=== PATIENT | male | born 1950 | race Caucasian/White ===

== ENCOUNTER 2016-09-29 19:18 | Inpatient (IN) | payer BC ==
[~2016-09-29] VITALS: Ht 177.8 cm; Wt 110.5 kg
[~2016-09-29 19:18] MED LIST: ACAM1TAB5 PO; ALLO300T2 PO; ASPI325T PO; BENA25TA3 PO; CARV3.125 PO; CHLO25CA2 PO; FLUO1TAB3 PO; SYMB80AE INH
[2016-09-29 19:20] VITALS: BP 131/62; PULSE 97; RESP 14; TEMP 97.5; O2SAT 92
[2016-09-29] MEDS ORDERED: SODIUM CHLOR 0.9% 1000 ML INJ 1,000 ML IV ONE (19:36)
[2016-09-29] MEDS ORDERED: ONDANSETRON HCL 4 MG/2 ML VIAL IVP ONE (19:45)
--- NOTE | 2016-09-29 19:58 | PD ---
HPI Chief Complaint: Fall Time Seen by Provider: 19:51 Travel History International Travel<30 days: No Contact w/Intl Traveler<30days: No Traveled to known affect area: No History of Present Illness HPI 65-year-old male that presents to the ED for evaluation of fall. Patient apparently had a syncopal fall at home. Per ambulance report bystanders stated the patient has had some episodes of blacking out. Patient does have a chronic history of alcohol abuse and he states that he has been trying to lower his intake. Patient doesn't remember the fall. Patient does not remember what actually happened. Patient does have some cuts to the nose as well as one to the tongue. Patient has pain in his head and neck. Patient does have bruises and contusions noted to the knees bilaterally. Patient does have some bruises as well noted on the arms as well. Patient has any chest pain or shortness of breath. He denies any blood thinners. Per patient he has an appointment with the [facility] to get evaluated for this "blackouts". Patient was just seen here couple weeks ago for something similar and was admitted to the hospital for almost a week. He has no allergies to medication. He states that his pain is 7 out of 10. Unclear of his last tetanus shot. Per patient she did have another fall 3 days ago but he did not get seen and he doesn't remember what happened during that time as well. PFSH Past Medical History Asthma: No Blood Disorders: No Anxiety: No Depression: Yes Heart Rhythm Problems: No Cancer: No Cardiac Catheterization: Yes Cardiovascular Problems: Yes (HTN) High Cholesterol: No Chest Pain: No Congestive Heart Failure: No COPD: Yes Endocrine: No Gout: Yes Genitourinary: No Immune Disorder: No Neurologic: No Psychiatric: Yes Respiratory: Yes (COPD) Sleep Apnea: No Tetanus Vaccination: Unknown Influenza Vaccination: Yes Past Surgical History Tonsillectomy: Yes Other Surgery: Yes Social History Alcohol Use: Yes (DAILY) Tobacco Use: No (former smoker, quit 6 years ago) Substance Use: No Allergies-Medications (Allergen,Severity, Reaction): Coded Allergies: No Known Allergies (Unverified , 09/29/16) Reported Meds & Prescriptions Reported Meds & Active Scripts Active Chlordiazepoxide (Chlordiazepoxide HCl) 25 Mg Cap 50 Mg PO Q6H 5 Days Aspirin 325 Mg Tab 325 Mg PO DAILY Coreg (Carvedilol) 3.125 Mg Tab 3.125 Mg PO BID Reported Acamprosate DR 333 Mg Tab 333 Mg PO TID Benadryl Allergy (Diphenhydramine HCl) 25 Mg Tab 25 Mg PO DAILY PRN Symbicort Inh (Budesonide/Formoterol Fumarate) 80-4.5 Mcg/Act Aero 2 Puff INH Q12HR Allopurinol 300 Mg Tab 300 Mg PO DAILY Fluoxetine (Fluoxetine HCl) 20 Mg Tab 20 Mg PO DAILY Review of Systems Except as stated in HPI: all other systems reviewed are Neg Physical Exam Narrative GENERAL: SKIN: Warm and dry. Patient has abrasions to the bridge of the nose as well as abrasions to the lip and right cheek and left cheek. Patient does have a hematoma to the right eyebrow. HEAD: Atraumatic. Normocephalic. EYES: Pupils equal and round 4mm reactive to light and accomodation. No scleral icterus. No injection or drainage. EOM intact. ENT: No nasal bleeding or discharge. Mucous membranes pink and moist. Tongue is midline but she does have a mid laceration to the distal tongue, about 1 cm. No uvula deviation. NECK: Trachea midline. No JVD. CARDIOVASCULAR: Regular rate and rhythm. No murmurs, S3, S4. RESPIRATORY: No accessory muscle use. Clear to auscultation. Breath sounds equal bilaterally. GASTROINTESTINAL: Abdomen soft, non-tender, nondistended. Hepatic and splenic margins not palpable. MUSCULOSKELETAL: Extremities without clubbing, cyanosis, or edema. No obvious deformities. Full range of motion of the upper and lower extremities bilaterally. Patient does have bruises and abrasions to both knees bilaterally. Patient does have bruising and abrasions also noted to the hands and forearms. No obvious lumbar, thoracic spine tenderness to palpation. Patient does have cervical spine tenderness to palpation. He has cervical collar in place. NEUROLOGICAL: Awake and alert. No obvious cranial nerve deficits. Motor grossly within normal limits. Five out of 5 muscle strength in the arms and legs. Normal speech. PSYCHIATRIC: Appropriate mood and affect; insight and judgment normal. Data Data Last Documented VS Vital Signs Date Time Temp Pulse Resp B/P Pulse Ox O2 Delivery O2 Flow Rate FiO2 09/29/16 19:20 97 14 95 Nasal Cannula 2 09/29/16 19:20 97.5 131/62 Orders Electrocardiogram (09/29/16 19:36) Basic Metabolic Panel (Bmp) (09/29/16 19:36) Complete Blood Count With Diff (09/29/16 19:36) Magnesium (Mg) (09/29/16 19:36) Ckmb (Isoenzyme) Profile (09/29/16 19:36) Troponin I (09/29/16 19:36) Act Partial Throm Time (Ptt) (09/29/16 19:36) Prothrombin Time / Inr (Pt) (09/29/16 19:36) Urinalysis - C+S If Indicated (09/29/16 19:36) Chest, Single Ap (09/29/16 19:36) Ct Brain W/O Iv Contrast(Rout) (09/29/16 19:36) Ct Cerv Spine W/O Contrast (09/29/16 19:36) Ecg Monitoring (09/29/16 19:36) Iv Access Insert/Monitor (09/29/16 19:36) Oximetry (09/29/16 19:36) Ondansetron Inj (Zofran Inj) (09/29/16 19:45) Sodium Chlor 0.9% 1000 Ml Inj (Ns 1000 M (09/29/16 19:36) Ct Facial Bones W/O Iv Cont (09/29/16 ) Knee, Complete (4vws) (09/29/16 ) Knee, Ltd (1 Or 2vws) (09/29/16 ) Pelvis, Ap Only (Routine) (09/29/16 ) Alcohol (Ethanol) (09/29/16 19:36) Drug Screen, Random Urine (09/29/16 19:36) Hepatic Functional Panel (09/29/16 19:40) Wound Care (09/29/16 19:59) Tetanus/Diphtheria Tox Adult (Tetanus/Di (09/29/16 20:00) Lidocaine 1% Inj (50 Ml) (Xylocaine 1% I (09/29/16 20:00) CKMB (09/29/16 19:45) CKMB% (09/29/16 19:45) Thiamine Inj (Thiamine Inj) (09/29/16 21:15) Admit Order (Ed Use Only) (09/29/16 22:04) Admit To Inpatient (09/29/16 ) Vital Signs (Adult) Q4H (09/29/16 22:05) Activity Bed Rest (09/29/16 22:05) ^ Pest Control Pilot / Telemetry .CONTINUOUS (09/29/16 22:05) Diet Heart Healthy (09/30/16 Breakfast) Sodium Chlor 0.9% 1000 Ml Inj (Ns 1000 M (09/29/16 22:05) Sodium Chloride 0.9% Flush (Ns Flush) (09/29/16 22:15) Sodium Chloride 0.9% Flush (Ns Flush) (09/30/16 09:00) Acetaminophen (Tylenol) (09/29/16 22:15) Ondansetron Inj (Zofran Inj) (09/29/16 22:15) Comprehensive Metabolic Panel (09/30/16 06:00) Complete Blood Count With Diff (09/30/16 06:00) Scd Bilateral/Knee High NATALI.BID (09/29/16 22:05) Naloxone Inj (Narcan Inj) (09/29/16 22:15) Alcohol Withdrawal Asmt-Ciwa Q4HX18 (09/29/16 22:05) Flumazenil Inj (Romazicon Inj) (09/29/16 22:15) Lorazepam (Ativan) (09/29/16 22:15) Lorazepam Inj (Ativan Inj) (09/29/16 22:15) Lorazepam (Ativan) (09/29/16 22:15) Lorazepam Inj (Ativan Inj) (09/29/16 22:15) Lorazepam Inj (Ativan Inj) (09/29/16 22:15) Lorazepam Inj (Ativan Inj) (09/29/16 22:15) Inpatient Certification (09/29/16 ) Consult Oral, Facial Surgery (09/29/16 ) Allopurinol (Zyloprim) (09/30/16 09:00) Aspirin (Aspirin) (09/30/16 09:00) Budeson-Formot 80-4.5 Mcg Inh (Symbicort (09/30/16 09:00) Carvedilol (Coreg) (09/30/16 09:00) Fluoxetine (Prozac) (09/30/16 09:00) (Nf) Acamprosate Dr (09/30/16 09:00) (Nf) Diphenhydramine (Benadryl Allergy) (09/29/16 22:15) Labs Laboratory Tests Test 09/29/16 19:45 White Blood Count 11.7 TH/MM3 Red Blood Count 4.08 MIL/MM3 Hemoglobin 13.7 GM/DL Hematocrit 39.6 % Mean Corpuscular Volume 97.0 FL Mean Corpuscular Hemoglobin 33.5 PG Mean Corpuscular Hemoglobin 34.6 % Concent Red Cell Distribution Width 13.8 % Platelet Count 342 TH/MM3 Mean Platelet Volume 8.0 FL Neutrophils (%) (Auto) 56.5 % Lymphocytes (%) (Auto) 33.7 % Monocytes (%) (Auto) 6.9 % Eosinophils (%) (Auto) 1.6 % Basophils (%) (Auto) 1.3 % Neutrophils # (Auto) 6.6 TH/MM3 Lymphocytes # (Auto) 4.0 TH/MM3 Monocytes # (Auto) 0.8 TH/MM3 Eosinophils # (Auto) 0.2 TH/MM3 Basophils # (Auto) 0.1 TH/MM3 CBC Comment DIFF FINAL Differential Comment Prothrombin Time 10.7 SEC Prothromb Time International 1.0 RATIO Ratio Activated Partial 26.2 SEC Thromboplast Time Sodium Level 140 MEQ/L Potassium Level 4.0 MEQ/L Chloride Level 101 MEQ/L Carbon Dioxide Level 28.9 MEQ/L Anion Gap 10 MEQ/L Blood Urea Nitrogen 12 MG/DL Creatinine 1.13 MG/DL Estimat Glomerular Filtration 65 ML/MIN Rate Random Glucose 111 MG/DL Calcium Level 8.1 MG/DL Magnesium Level 1.8 MG/DL Total Bilirubin 0.4 MG/DL Direct Bilirubin 0.1 MG/DL Indirect Bilirubin 0.3 MG/DL Aspartate Amino Transf 66 U/L (AST/SGOT) Alanine Aminotransferase 58 U/L (ALT/SGPT) Alkaline Phosphatase 114 U/L Total Creatine Kinase 136 U/L Creatine Kinase MB 3.7 NG/ML Troponin I 0.03 NG/ML Total Protein 6.9 GM/DL Albumin 3.0 GM/DL Ethyl Alcohol Level 217 MG/DL MDM Medical Decision Making Medical Screen Exam Complete: Yes Emergency Medical Condition: Yes Medical Record Reviewed: Yes Interpretation(s) CBC & BMP Diagram 09/29/16 19:[address] 09/29/161935 Signed Impressions: Service Date/Time: Thursday, September 29, 2016 19:49 - CONCLUSION: 1. No intracranial abnormality is seen. 2. Right periorbital soft tissue swelling. 3. Facial CT examination to follow. Renny Alston MD Chest X-Ray 09/29/161935 Signed Impressions: Service Date/Time: Thursday, September 29, 2016 20:19 - CONCLUSION: Normal examination. Renny Alston MD Pelvis X-Ray 09/29/16 0000 Signed Impressions: Service Date/Time: Thursday, September 29, 2016 20:17 - CONCLUSION: No acute disease. Renny Alston MD CT face did showed right lower orbital fracture. alcohol is 200s. Differential Diagnosis Laceration versus head injury versus syncope versus presyncope versus alcohol abuse versus fall versus ICH versus traumatic head injury versus Narrative Course 65-year-old male that presents to the ED for evaluation of fall. Patient was properly examined and was found to have signs and symptoms consistent with appears to be syncopal fall. Patient does smell of alcohol but he he has had episodes of blacking out. Patient had an episode 3 days ago with the same. Labs and imaging were ordered. Labs and imaging showed elevated alcohol level in the 200s as well as fracture of the right lower orbit. Patient does have entrapment of the right eye on my second evaluation of the patient. Case was discussed with maxillofacial surgery and Dr. Finley who agrees to admission for surgery. After explained procedure to the patient and he agreed to it laceration of the tongue was repaired by me with assistance of ED nurse. Patient alert procedure well. Patient was told the sutures will dissolve on their own. Patient was started on unasyn antibiotic. Patient was told findings and agrees to admission. Patient was given IV fluids and thiamine here. Case was discussed with Dr. Chatman who agrees to admission. Procedures Procedure Narrative LACERATION LOCATION: tongue LENGTH: 1.5 cm throught and through in the mid tongue with slight avulsion of tip NUMBER OF STITCHES/GABY: 7 sutures REPAIR: The area of the laceration was prepped with Betadine and sterilely draped. The laceration was infiltrated with 1% Lidocaine. The wound was copiously irrigated and explored without evidence of foreign body, tendon injury or neurovascular injury. The wound was closed using 4-0 Vycril. This was a 1 layer repair. A sterile dressing was applied. The patient was advised to keep the dressing clean and dry. Patient tolerated the procedure well. EKG Prior to Arrival: No Diagnosis Primary Impression: Right orbital fracture Qualified Code: S02.81XA - Right orbital fracture, closed, initial encounter Additional Impressions: Alcohol abuse Syncopal episodes Qualified Code: R55 - Syncope, unspecified syncope type Admitting Information Admitting Physician Requests: Admit Jay Pollard Sep 29, 2016 19:58
[2016-09-29] MEDS ORDERED: TETANUS/DIPHTHERIA TOXOID ADULT 0.5 ML VIAL IM ONE (20:00)
[2016-09-29] MEDS ORDERED: LIDOCAINE HCL 1% 50 ML VIAL INFIL ONE (20:00)
[2016-09-29 20:07] LABS: AUTOMATED NEUTROPHIL # 6.6 TH/MM3 (1.8-7.7); BASOPHIL # 0.1 TH/MM3 (0-0.2); BASOPHIL % 1.3 % (0.0-2.0); EOSINOPHIL # 0.2 TH/MM3 (0-0.4); EOSINOPHIL % 1.6 % (0.0-4.0); HEMATOCRIT 39.6 % (39.0-51.0); HEMO FLAGS DIFF FINAL; LYMPH % 33.7 % (9.0-44.0); MEAN CORPUSCULAR HEMOGLOBIN 33.5 PG (27.0-34.0); MEAN CORPUSCULAR HGB CONC 34.6 % (32.0-36.0); MONO % 6.9 % (0.0-8.0); NEUT % 56.5 % (16.0-70.0); PLATELET COUNT 342 TH/MM3 (150-450); RED BLOOD COUNT 4.08 MIL/MM3 (4.50-5.90); RED CELL DISTRIBUTION WIDTH 13.8 % (11.6-17.2); WHITE BLOOD COUNT 11.7 TH/MM3 (4.0-11.0)
[2016-09-29 20:17] LABS: APTT (PATIENT) 26.2 SEC (24.3-30.1); PROTHROMBIN TIME - PATIENT 10.7 SEC (9.8-11.6)
--- NOTE | 2016-09-29 20:19 | RADRPT ---
EXAM DATE/TIME: 09/29/2016 19:49 [facility] COMPARISON: CT BRAIN W/O CONTRAST, September 12, 2016, 21:32. INDICATIONS : Trauma, fall. RADIATION DOSE: 42.33 CTDIvol (mGy) MEDICAL HISTORY : Hypertension. Cardiovascular disease SURGICAL HISTORY : None. ENCOUNTER: Initial ACUITY: 1 day PAIN SCALE: 5/10 LOCATION: cranial TECHNIQUE: Multiple contiguous axial images were obtained of the head. Using automated exposure control and adj ustment of the mA and/or kV according to patient size, radiation dose was kept as low as reasonably a chievable to obtain optimal diagnostic quality images. FINDINGS: CEREBRUM: The ventricles are normal for age. No evidence of midline shift, mass lesion, hemorrhage or acute in farction. No extra-axial fluid collections are seen. POSTERIOR FOSSA: The cerebellum and brainstem are intact. The 4th ventricle is midline. The cerebellopontine angle i s unremarkable. EXTRACRANIAL: There is right periorbital swelling. The patient is to have a CT of the facial bones to follow. SKULL: The calvaria is intact. No evidence of skull fracture. CONCLUSION: 1. No intracranial abnormality is seen. 2. Right periorbital soft tissue swelling. 3. Facial CT examination to follow. Renny Alston MD on September 29, 2016 at 20:16 Board Certified Radiologist. This report was verified electronically.
[2016-09-29 20:25] LABS: ANION GAP 10 MEQ/L (5-15); BICARBONATE 28.9 MEQ/L (21.0-32.0); BLOOD UREA NITROGEN 12 MG/DL (7-18); CHLORIDE 101 MEQ/L (98-107); GLOMERULAR FILTRATION RATE 65 ML/MIN (>89); INDIRECT BILIRUBIN 0.3 MG/DL (0.0-0.8); MAGNESIUM 1.8 MG/DL (1.5-2.5); SODIUM (NA) 140 MEQ/L (136-145); TOTAL BILIRUBIN ADULT 0.4 MG/DL (0.2-1.0)
[2016-09-29 20:28] LABS: CREATINE KINASE 136 U/L (39-308)
[2016-09-29 20:41] LABS: CKMB 3.7 NG/ML (0.5-3.6)
--- NOTE | 2016-09-29 20:45 | RADRPT ---
EXAM DATE/TIME: 09/29/2016 20:17 [facility] COMPARISON: No previous studies available for comparison. INDICATIONS : Pain from fall. MEDICAL HISTORY : None. SURGICAL HISTORY : None. ENCOUNTER: Initial ACUITY: 1 day PAIN SCORE: 5/10 LOCATION: Bilateral pelvis FINDINGS: A single frontal view of the pelvis demonstrates no evidence of fracture. The bony pelvic ring is in tact. Bony mineralization is normal. The soft tissues are intact. CONCLUSION: No acute disease. Renny Alston MD on September 29, 2016 at 20:43 Board Certified Radiologist. This report was verified electronically.
--- NOTE | 2016-09-29 20:48 | RADRPT ---
EXAM DATE/TIME: 09/29/2016 20:19 [facility] COMPARISON: No previous studies available for comparison. INDICATIONS : Abnormal heartbeat. MEDICAL HISTORY : None. SURGICAL HISTORY : Cardiac catheterization. ENCOUNTER: Initial ACUITY: 1 day PAIN SCORE: 5/10 LOCATION: Bilateral chest FINDINGS: A single view of the chest demonstrates the lungs to be symmetrically aerated without evidence of mas s, infiltrate or effusion. The cardiomediastinal contours are unremarkable. Osseous structures are intact. CONCLUSION: Normal examination. Renny Alston MD on September 29, 2016 at 20:47 Board Certified Radiologist. This report was verified electronically.
--- NOTE | 2016-09-29 20:51 | RADRPT ---
EXAM DATE/TIME: 09/29/2016 19:49 [facility] COMPARISON: No previous studies available for comparison. INDICATIONS : Trauma, fall. RADIATION DOSE: 25.01 CTDIvol (mGy) MEDICAL HISTORY : Hypertension. Cardiovascular disease SURGICAL HISTORY : None. ENCOUNTER: Initial ACUITY: 1 day PAIN SCALE: 5/10 LOCATION: neck TECHNIQUE: Volumetric scanning of the cervical spine was performed. Multiplanar reconstructions i n the sagittal, coronal and oblique axial planes were performed. Using automated exposure control a nd adjustment of the mA and/or kV according to patient size, radiation dose was kept as low as reason ably achievable to obtain optimal diagnostic quality images. FINDINGS: VERTEBRAE: Normal vertebral body height. ALIGNMENT: There is mild anterior subluxation of C3 on C4 in the order of 3 mm likely secondary t o facet hypertrophy. C2-C3: The posterior disc margin appears grossly intact. Significant spinal stenosis is not appreci ated. There is facet hypertrophy on the left side. This causes a mild impression on the posterior a spect of the left neural foramina. The right neural foramina appears patent. C3-C4: There is minimal anterior subluxation of C3 on C4 in the order of 3 mm. The posterior disc m argin appears grossly intact. There is bilateral facet hypertrophy being worse on the left. The left -sided facet hypertrophy does cause narrowing of the left neural foramina. The right neural foramina appears intact. C4-C5: Posterior disc margin appears grossly intact. Significant spinal stenosis is not appreciated . There is bilateral facet hypertrophy being worse on the left. There is some mild narrowing of the left neural foramina. The right neural foramina appears intact. C5-C6: Posterior disc margin appears grossly intact. There is bilateral facet hypertrophy being wor se on the right. Significant narrowing of the neural foramina is not appreciated. C6-C7: There is minimal posterior subluxation of C6 on C7 in the order of 2 mm. There is narrowing of the C6-C7 disc level. There are peripheral marginal osteophytes causing a mild impression on the t hecal sac. There is uncovertebral hypertrophy. There is mild facet hypertrophy. There is some narro wing of the left neural foramina. The right neural foramina appears grossly intact. C7-T1: Intact. CONCLUSION: Degenerative change as described above. An acute bony abnormality is not seen. Renny Alston MD on September 29, 2016 at 20:18 Board Certified Radiologist. This report was verified electronically.
--- NOTE | 2016-09-29 20:56 | RADRPT ---
EXAM DATE/TIME: 09/29/2016 19:49 [facility] COMPARISON: No previous studies available for comparison. INDICATIONS : Trauma, fall. RADIATION DOSE: 64.21 CTDIvol (mGy) MEDICAL HISTORY : Hypertension. Cardiovascular disease SURGICAL HISTORY : None. ENCOUNTER: Initial ACUITY: 1 day PAIN SCORE: 6/10 LOCATION: Right facial and nasal TECHNIQUE: Volumetric scanning of the facial bones was performed. Using automated exposure contr ol and adjustment of the mA and/or kV according to patient size, radiation dose was kept as low as re asonably achievable to obtain optimal diagnostic quality images. FINDINGS: There are multiple fractures in the nasal bones. The fractures at the bases of the nasa l bones are slightly shifted towards the left in the order of 1 mm. There appears to be fracturing of the superior anterior aspect of the lamina papyracea best appreciat ed on the coronal images. Some orbital fat appears medially displaced. Orbital emphysema is not see n. The orbital margins appear intact. The maxillae appear intact. The zygomatic arches are intact. There does appear to be mucosal disease at the left frontal sinus, the bilateral ethmoid sinuses, b ilateral maxillary sinuses and extending into the left nasal cavity. There is mild mucosal thickenin g at the anterior medial left sphenoid sinus. There is right periorbital soft tissue swelling. CONCLUSION: 1. Multiple nasal bone fractures with minimal left lateral displacement. 2. Fracturing of the anterior superior right lamina papyracea with some displacement of the medial or bital fat into the defect. 3. Suspected underlying sinus disease as described above. 4. Right periorbital soft-tissue swelling. Renny Alston MD on September 29, 2016 at 20:22 Board Certified Radiologist. This report was verified electronically.
--- NOTE | 2016-09-29 21:08 | RADRPT ---
EXAM DATE/TIME: 09/29/2016 20:24 [facility] COMPARISON: No previous studies available for comparison. INDICATIONS : Pain from fall. MEDICAL HISTORY : None. SURGICAL HISTORY : None. ENCOUNTER: Initial ACUITY: 1 day PAIN SCORE: 5/10 LOCATION: Right knee. FINDINGS: There is joint space narrowing seen medially and laterally. There is mild spur formati on at the medial femoral condyle and medial tibial plateau. There is a mild joint effusion. There i s some spurring off the anterior superior aspect of the patella. An acute fracture is not seen. CONCLUSION: 1. Degenerative change as described above. 2. Mild joint effusion. Renny Alston MD on September 29, 2016 at 20:48 Board Certified Radiologist. This report was verified electronically.
[2016-09-29] MEDS ORDERED: THIAMINE INJ 100 MG in SODIUM CHLORIDE 0.9% INJ 100 ML IV ONE (21:15)
--- NOTE | 2016-09-29 21:30 | RADRPT ---
EXAM DATE/TIME: 09/29/2016 20:21 [facility] COMPARISON: No previous studies available for comparison. INDICATIONS : Pain from fall. MEDICAL HISTORY : None. SURGICAL HISTORY : None. ENCOUNTER: Initial ACUITY: 1 day PAIN SCORE: 5/10 LOCATION: Left knee. FINDINGS: The knee joint is normally aligned. No fracture is seen. No effusion is seen. There is some mild spu rring off the anterior superior aspect of the patella. CONCLUSION: No acute abnormality is seen. Renny Alston MD on September 29, 2016 at 20:47 Board Certified Radiologist. This report was verified electronically.
[2016-09-29] MEDS ORDERED: LORazepam 1 MG TAB PO PRN (22:15)
[2016-09-29] MEDS ORDERED: SODIUM CHLORIDE 0.9% FLUSH 5 ML FLUSH FLUSH PRN (22:15)
[2016-09-29] MEDS ORDERED: LORazepam 2 MG TAB PO PRN (22:15)
[2016-09-29] MEDS ORDERED: ACETAMINOPHEN 325 MG TAB PO PRN (22:15)
[2016-09-29] MEDS ORDERED: LORazepam 2 MG/ML VIAL IV PUSH PRN ×4 (22:15)
[2016-09-29] MEDS ORDERED: diphenhydrAMINE HCL 25 MG CAP PO PRN (22:15)
[2016-09-29] MEDS ORDERED: FLUMAZENIL 0.5 MG/5 ML VIAL IV PUSH PRN (22:15)
[2016-09-29] MEDS ORDERED: ONDANSETRON HCL 4 MG/2 ML VIAL IVP PRN (22:15)
[2016-09-29] MEDS ORDERED: NALOXONE HCL 0.4 MG/ML AMP IV PRN (22:15)
[2016-09-29 22:41] LABS: AMPHETAMINE, URINE NEG (NEG); BARBITURATES, URINE NEG (NEG); COCAINE, URINE NEG (NEG)
[2016-09-29 22:42] LABS: BLOOD, URINE NEG (NEG); COMMENT (UR) CULT NOT INDICATED; CULTURE IF INDICATED CULT NOT INDICATED; GLUCOSE,URINE NEG (NEG); HYALINE CAST, URINE 3 /lpf (RARE); KETONE, URINE NEG (NEG); NITRITE,URINE NEG (NEG); PH, URINE 5.5 (5.0-8.5); URINE COLOR LIGHT-YELLOW (YELLW/STRAW)
[2016-09-29] MEDS: SODIUM CHLOR 0.9% 1000 ML INJ 1,000 ML IV SCH (23:30)
[2016-09-29 23:37] VITALS: BP 135/60; PULSE 100; RESP 18; O2SAT 98
[2016-09-30] VITALS (9 sets, daily range): BP systolic 120–142; BP diastolic 60–77; PULSE 75–100; RESP 16–22; TEMP 96.4–97.9; O2SAT 93–99
--- NOTE | 2016-09-30 07:24 | MB ---
cc: HAMLET FINLEY DMD DATE OF CONSULTATION: 09/30/2016 REASON FOR CONSULTATION: Nasal bones / orbital fracture. HISTORY OF PRESENT ILLNESS: This is a 65-year-old male who is status post a fall. Possible syncopal fall. The patient reports he has had this before. I have seen him and examined this morning. His nurse is at bedside. He is alert, awake and oriented x3 in no acute distress. Denies any vision problems or any problems to his face. Denies any fever, chills, nausea, vomiting, any shortness of breath, any difficulty breathing or any difficulty swallowing. He reports he always generally breaths through his mouth. Denies any neck pain. PAST MEDICAL HISTORY: 1. History of hypertension. 2. History of gout. 3. History of COPD. 4. History of depression. PAST SURGICAL HISTORY 1. Tonsillectomy. 2. Cardiac cath. ALLERGIES Denied. MEDICATIONS As per report. 1. Fluoxetine. 2. Allopurinol. 3. Symbicort. 4. Benadryl. ACAMPROSATE EXAMINATION Facial bones have been palpated. No gross tenderness to the facial or the nasal bone. He had a dressing on his nose is be removed. He has an abrasion on his nose. No active heme that is noted. No tenderness to palpation. There is right-sided facial edema greater than the left. There is periorbital edema / ecchymosis. I am gently able to pry the right eye open. The pupils equal round reactive to light and accommodation. Extraocular movements appears to be intact. Extraocular movements intact. There is no entrapment noted. Denies any diplopia or any vision problems. No entrapment noted. There is no septal hematoma that is noted. No active heme from the nose. There is some edema on the nose but mostly appears symmetrical. Intra orally bite is in occlusion. He has a laceration to tongue which has been repaired in the ER which is anterior part of the tongue. Positive range of movement of the neck. CT scan of the facial bones shows a minimally displaced medial orbital wall fracture. Fracture lamina propria she on the right side. Minimally displaced nasal bone fracture. LABORATORY DATA White count 11.7, H&H is 30.7-9.6 is a platelet count of 342, sodium is 140, potassium 4.0, chloride is 101, CO2 28.9 with a BUN is 12 with a creatinine of 1.13 with a glucose of 111. PT is 10.7, INR is 1.0 a PTT 26.2. Vital signs; Temperature 96.5, pulse is 97, respirations 16, blood pressure is 137/68 with oxygen sat of 97% IMPRESSION AND PLAN This is a 65 year-old male status post fall, possible with syncopal episode with them in a minimally displaced nasal bone fractures / medial orbital wall fracture/lamina propria fracture on the right side. There is no surgical intervention needed at this point. He has got good visual acuity and there is no entrapment that is noted. My clinical exam. Will have the patient follow up in my office next week. We will place the patient on sinus precautions, discussed the plan with the patient. Hamlet Finley, ANDREINA [employer]CHIAT[employer]IC/ /6:55 AM /7:15 AM MARGIE
[2016-09-30] MEDS: SODIUM CHLORIDE 0.9% FLUSH 5 ML FLUSH FLUSH SCH ×2 (09:00→20:43)
[2016-09-30] MEDS ORDERED: ACAMPROSATE 333 MG PO SCH (09:00)
[2016-09-30] MEDS: CARVEDILOL 3.125 MG TAB PO SCH ×2 (09:34→20:43)
[2016-09-30] MEDS: FLUoxetine HCL 20 MG CAP PO SCH (09:34)
[2016-09-30] MEDS: ALLOPURINOL 300 MG TAB PO SCH (09:34)
[2016-09-30] MEDS: ASPIRIN 325 MG TAB PO SCH (09:34)
[2016-09-30] MEDS: ceFAZolin 1,000 MG/NS 100 ML IV SCH ×4 (09:34→15:39)
[2016-09-30] MEDS: SODIUM CHLOR 0.9% 1000 ML INJ 1,000 ML IV SCH ×2 (09:43→18:05)
[2016-09-30] MEDS ORDERED: RESP: ALBUTEROL 2.5 MG/IPRATROPIUM 0.5 MG NEB (PRN) NEB (11:00)
--- NOTE | 2016-09-30 11:59 | RADRPT ---
EXAM DATE/TIME: 09/30/2016 11:18 [facility] COMPARISON: No previous studies available for comparison. INDICATIONS : Trauma, fall. MEDICAL HISTORY : Hypertension. Chronic obstructive pulmonary disease. SURGICAL HISTORY : Tonsillectomy. ENCOUNTER: Initial ACUITY: 1 day PAIN SCORE: 0/10 LOCATION: cranial TECHNIQUE: Multiplanar, multisequence MRI of the brain was performed without contrast. FINDINGS: CEREBRUM: The ventricles are normal for age. No evidence of midline shift, mass lesion, hemorrhage or acute in farction. No extraaxial fluid collections are seen. The pituitary gland and suprasellar cistern are normal in configuration. WHITE MATTER: No significant signal abnormalities are seen in the white matter. POSTERIOR FOSSA: The cerebellum and brainstem are intact. The 4th ventricle is midline. The cerebellopontine angle is unremarkable. The cerebellar tonsils are normal in position. DIFFUSION IMAGING: No focal areas of restricted diffusion are seen. No evidence of acute infarction. EXTRACRANIAL: Air-fluid level in the left maxillary sinuses left greater than right. CONCLUSION: Unremarkable intracranial exam. Air fluid level maxillary sinuses left greater than right. Miguel Hernandez MD on September 30, 2016 at 11:57 Board Certified Radiologist. This report was verified electronically.
--- NOTE | 2016-09-30 12:01 | RADRPT ---
EXAM DATE/TIME: 09/30/2016 11:18 [facility] COMPARISON: No previous studies available for comparison. INDICATIONS : Trauma, fall. MEDICAL HISTORY : Hypertension. Chronic obstructive pulmonary disease. SURGICAL HISTORY : Tonsillectomy. ENCOUNTER: Initial ACUITY: 1 day PAIN SCORE: 0/10 LOCATION: cranial Please note a normal MRA of the brain does not entirely exclude the possibility of a small aneurysm, nor the possibility of distal intracranial vessel disease. TECHNIQUE: 3D time of flight MRA was performed. Source images, multiplanar STS MIP, and 3D volume MIP reconstru ctions were reviewed. FINDINGS: There is excellent visualization of the major intracranial arteries out to the second-order branch ve ssels. There is no evidence for aneurysm, vessel truncation or stenosis, and no evidence for vascula r malformation. CONCLUSION: Normal examination. Miguel Hernandez MD on September 30, 2016 at 11:59 Board Certified Radiologist. This report was verified electronically.
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
[2016-09-30] MEDS: PANTOPRAZOLE SOD 20 MG DELAYED RELEASE TAB PO SCH (13:06)
[2016-09-30] MEDS: BUDESONIDE-FORMOTEROL 80/4.5 MCG INHALER INH SCH ×2 (13:06→20:44)
--- NOTE | 2016-09-30 14:21 | EKG ---
Date Performed: 09/29/2016 Time Performed: 21:59:42 PTAGE: 65 years EKG: Sinus rhythm NONSPECIFIC T-WAVE ABNORMALITY BORDERLINE ECG Compared to prior tracing no significant change PREVIOUS TRACING : 09/13/2016 08.10 DOCTOR: Ervin Lennon Interpretating Date/Time 09/30/2016 14:17:48
--- NOTE | 2016-09-30 14:44 | MG ---
cc: VAL WAEKFIELD M.D. Lab No: [id number] Date: 09/30/2016 Age: 65 Sex: M Race: DATE OF : 1950 65 ROOM 1610. With photic stimulation awake, drowsy asleep study, CT without any intracranial abnormalities. MRI was also normal. A 65 year-old man with syncope, black out spells elevated alcohol level on admission over 200. Medicines are listed but he is also on some benzodiazepines as a withdrawal preventative. DESCRIPTION OF RECORD: There is quite a bit of artifact there is some faster frequency looks like beta waves bilaterally. EKG does look sinus but there is some artifact superimposed at one point in the study he is snoring. No epileptic activity is noted. Photic stimulation there is a driving response. IMPRESSION Mildly abnormal EEG due to beta frequency. Certainly likely due to medicine effect such as benzodiazepines, but there is no evidence of any epileptiform features. MD ROHAN Kohler/jose /1:58 PM /2:33 PM
--- NOTE | 2016-09-30 15:44 | MB ---
cc: VAL WAKEFIELD M.D. DATE OF CONSULTATION: 09/30/2016. REASON FOR CONSULTATION: Syncope. HISTORY OF PRESENT ILLNESS: The patient is a 65-year-old man with history of gout, depression, COPD and alcoholism. Apparently yesterday he was just walking outside and was found by a friend on the ground. There is no description as to whether the patient was shaking or if there was any urinary incontinence but he did have a laceration of the tongue that was sutured. He sustained an injury to his right orbit, I believe the eye area as well as nasal fracture. Apparently he has some issues with alcoholism. He has been sober per chart for 16 days. The patient states he has no forewarning when this occurs. I am told apparently this is the third episode; the first one was at a [employer] and the next time he woke up from sleeping in his chair and fell down and had syncope. He apparently tells me that he is supposed to be seeing a neurologist. His primary care doctor is sending him to have an MRI done. He denies any chest pain, shortness of breath, numbness, tingling, weakness, dizziness. He does have a history of COPD, alcohol abuse history, depression, gout, and possible cirrhosis. PAST SURGICAL HISTORY: Tonsillectomy. MEDICATIONS: Please review the MAR. ALLERGIES: None reported. FAMILY HISTORY: Noncontributory. SOCIAL HISTORY: Alcoholic for forty years. Apparently states he stopped 16 days ago but started back yesterday for whatever reason. Quit smoking in 1996. No drug abuse. PHYSICAL EXAMINATION: VITAL SIGNS: Temperature is 96.4, pulse 78, respiratory rate 20, blood pressure 128/75 satting at 95% on room air. NECK: The neck is supple. No appreciable bruits. HEART: Currently his heart is regular. NEUROLOGICAL EXAMINATION: His left pupil is reactive. His right eye is closed from the edema. He has a large ecchymotic region. He has swelling of his nose, it is broken/fractured. He also has a sutured laceration of the tongue. Speech is otherwise fluent. Motor - there is no weakness. No drift or leg lag. Cerebellar - normal toes downgoing. Gait is withheld at this time. LABS: His labs are reviewed. White count yesterday was 11.7, no shift. Chemistries: Albumin is 3. His AST is 66. ALT is 58, that has actually improved. His glucose is 111. Calcium 8.1. GFR 65. Urine negative. Toxicology positive for benzodiazepines. Alcohol level was 217 yesterday. Coagulation panel is unremarkable. IMAGING STUDIES: Imaging of the brain without contrast shows no acute process. No diffusion abnormalities. Air-fluid in the left greater than right maxillary sinus. MRA of the habemat[place] of [place] also performed and did not show any intracranial disease. Cervical spine - degenerative changes but no fracture. He had a carotid ultrasound in August that was with minimal plaquing and did not repeat it. He just had an EEG and I will have to take a look at that. OTHER TESTS: As far as other tests, he has been evaluated by cardiology on 09/13/16. They recommended undergoing a cardiac catheterization if necessary. He had some non-S-T elevation and possible myocardial infarction at that time. Per the discharge summary, the cardiac catheterization on September 10 showed nonobstructive disease, no intervention was required. They were worried about possible orthostatic hypotension possibly due to acute intoxication with alcohol. CURRENT VITAL SIGNS: He is not hypotensive. IMPRESSION: Syncope, etiology really unknown. He had a cardiac catheterization that was unremarkable. However, I would not rule out a dysrhythmia in this patient. RECOMMENDATIONS/PLAN: 1. We will go ahead and get the EEG read. 2. He certainly could have had a withdrawal seizure, still not unlikely as prolonged alcohol use can provoke seizures. 3. I would certainly put him on a heart monitor, a prolonged Holter monitor. 4. He is not to drive for six months. Unfortunately about the alcohol, I am not sure if he will stop drinking altogether but if you are worried about him going into any withdrawal, go ahead and put him on a little bit of Librium or Ativan PRN and monitor for any withdrawal seizures. 5. Continue current recommendations. MD ROHAN Kohler/JAMIL /1:33 PM /3:23 PM
[2016-09-30 15:55] LABS: AUTOMATED NEUTROPHIL # 6.2 TH/MM3 (1.8-7.7); BASOPHIL # 0.1 TH/MM3 (0-0.2); BASOPHIL % 1.3 % (0.0-2.0); EOSINOPHIL # 0.1 TH/MM3 (0-0.4); EOSINOPHIL % 1.3 % (0.0-4.0); HEMATOCRIT 38.1 % (39.0-51.0); HEMO FLAGS DIFF FINAL; LYMPH % 25.6 % (9.0-44.0); LYMPHOCYTE # 2.5 TH/MM3 (1.0-4.8); MEAN CELL VOLUME 96.4 FL (80.0-100.0); MEAN CORPUSCULAR HEMOGLOBIN 32.7 PG (27.0-34.0); MEAN CORPUSCULAR HGB CONC 33.9 % (32.0-36.0); MONO % 9.3 % (0.0-8.0); NEUT % 62.5 % (16.0-70.0); PLATELET COUNT 288 TH/MM3 (150-450); RED BLOOD COUNT 3.95 MIL/MM3 (4.50-5.90); RED CELL DISTRIBUTION WIDTH 13.8 % (11.6-17.2); WHITE BLOOD COUNT 9.8 TH/MM3 (4.0-11.0)
[2016-09-30 16:22] LABS: ALT (GPT) 45 U/L (12-78); ANION GAP 6 MEQ/L (5-15); AST (GOT) 42 U/L (15-37); BICARBONATE 31.8 MEQ/L (21.0-32.0); BLOOD UREA NITROGEN 8 MG/DL (7-18); CHLORIDE 103 MEQ/L (98-107); GLOMERULAR FILTRATION RATE 102 ML/MIN (>89); POTASSIUM 3.8 MEQ/L (3.5-5.1); SODIUM (NA) 141 MEQ/L (136-145)
[2016-09-30 16:24] LABS: ALKALINE PHOSPHATASE 99 U/L (45-117); TOTAL BILIRUBIN ADULT 0.6 MG/DL (0.2-1.0)
[2016-09-30] MEDS ORDERED: TEMAZEPAM 15 MG CAP PO PRN (20:30)
[2016-09-30] MEDS: ACETAMINOPHEN/HYDROcodone 325 MG/5 MG TAB PO PRN (20:43)
[2016-10-01] MEDS: ceFAZolin 1,000 MG/NS 100 ML IV SCH ×4 (00:07→08:52)
[2016-10-01] MEDS: SODIUM CHLOR 0.9% 1000 ML INJ 1,000 ML IV SCH (03:48)
[2016-10-01 05:00] VITALS: BP 118/68; PULSE 81; RESP 16; TEMP 97.9; O2SAT 98
[2016-10-01 08:00] VITALS: BP 115/58; PULSE 71; RESP 20; TEMP 95.5; O2SAT 94
[2016-10-01] MEDS: ALLOPURINOL 300 MG TAB PO SCH (08:52)
[2016-10-01] MEDS: CARVEDILOL 3.125 MG TAB PO SCH (08:52)
[2016-10-01] MEDS: FLUoxetine HCL 20 MG CAP PO SCH (08:52)
[2016-10-01] MEDS: ASPIRIN 325 MG TAB PO SCH (08:52)
[2016-10-01] MEDS: ACETAMINOPHEN/HYDROcodone 325 MG/5 MG TAB PO PRN (08:53)
[2016-10-01] MEDS: SODIUM CHLORIDE 0.9% FLUSH 5 ML FLUSH FLUSH SCH (08:53)
[2016-10-01] MEDS: PANTOPRAZOLE SOD 20 MG DELAYED RELEASE TAB PO SCH (08:53)
[2016-10-01] MEDS: BUDESONIDE-FORMOTEROL 80/4.5 MCG INHALER INH SCH (08:54)
--- NOTE | 2016-10-01 10:33 | HHI.PR ---
Subjective Remarks Patient wants to go home. Patient lost his credit cards. And he has to go home and do some paperwork. He denies any complaint. No nausea vomiting No dizziness No headache No depression or anxiety Feeling good Review of system for 12 point system otherwise unremarkable Objective Objective Results - Vital Signs Date Time Temp Pulse Resp B/P Pulse Ox O2 Delivery O2 Flow Rate FiO2 10/01/16 08:00 95.5 71 20 115/58 94 10/01/16 05:00 97.9 81 16 118/68 98 09/30/16 23:50 96.6 75 16 120/60 95 09/30/16 20:05 87 09/30/16 20:00 96.4 78 16 139/67 96 09/30/16 16:00 97.2 80 20 142/77 96 09/30/16 12:00 96.4 78 20 128/65 95 I/O 09/30/16 09/30/16 09/30/16 10/01/16 10/01/16 10/01/16 07:00 15:00 23:00 07:00 15:00 23:00 Intake Total 2277 ml 480 ml 480 ml 340 ml Output Total 550 ml 880 ml Balance 1727 ml -400 ml 480 ml 340 ml Intake Oral 1200 ml 480 ml 480 ml 240 ml IV Total 1077 ml 100 ml Output Urine Total 550 ml 880 ml # Voids 2 2 1 # Bowel Movements 0 1 Result Diagram: 09/30/16 1529 09/30/16 1529 Other Results Laboratory Tests Test 09/30/16 15:29 White Blood Count 9.8 Red Blood Count 3.95 Hemoglobin 12.9 Hematocrit 38.1 Mean Corpuscular Volume 96.4 Mean Corpuscular Hemoglobin 32.7 Mean Corpuscular Hemoglobin 33.9 Concent Red Cell Distribution Width 13.8 Platelet Count 288 Mean Platelet Volume 7.8 Neutrophils (%) (Auto) 62.5 Lymphocytes (%) (Auto) 25.6 Monocytes (%) (Auto) 9.3 Eosinophils (%) (Auto) 1.3 Basophils (%) (Auto) 1.3 Neutrophils # (Auto) 6.2 Lymphocytes # (Auto) 2.5 Monocytes # (Auto) 0.9 Eosinophils # (Auto) 0.1 Basophils # (Auto) 0.1 CBC Comment DIFF FINAL Differential Comment Sodium Level 141 Potassium Level 3.8 Chloride Level 103 Carbon Dioxide Level 31.8 Anion Gap 6 Blood Urea Nitrogen 8 Creatinine 0.77 Estimat Glomerular Filtration 102 Rate Random Glucose 134 Calcium Level 8.4 Total Bilirubin 0.6 Aspartate Amino Transf 42 (AST/SGOT) Alanine Aminotransferase 45 (ALT/SGPT) Alkaline Phosphatase 99 Total Protein 6.4 Albumin 2.7 Physical Exam Physical Exam GENERAL: The patient is alert, oriented, lying on bed with some aches and pains. VITAL SIGNS: Reviewed. HEENT: Head atraumatic but on the face the patient has bruise on the nose area as well as the right cheek, and there is slight swelling of the right facial region and the left. His nose is slightly tender and also the right facial area is tender. There is no blood noted. Patient has some swelling of the right upper eyelid. He can open his eye he can see through it. He is in normal eye movement. Mouth Examination - positive stitches in tongue. Talking normal. NECK: Supple. No increased JVD. Central trachea. RESPIRATORY SYSTEM: Chest clear to auscultation. CARDIOVASCULAR: S1 and S2 audible. Unable to hear any S3 gallop. GASTROINTESTINAL: Abdomen soft. No organomegaly. Positive bowel sounds. MUSCULOSKELETAL: Extremities: No cyanosis or pedal edema appreciated. HEALTH RESEARCHER: Grossly intact. No tremors noted. SKIN: Warm, moist and bruises on the face, also bruise on the right knee. PSYCHIATRIC: Appropriate mood and affect. A/P Assessment and Plan 1. Recurrent syncopal episode of questionable etiology. 2. Alcohol abuse intoxication. History of alcoholism for 40 years, quit 16 days ago, had alcohol yesterday. 3. COPD. 4. Minimally displaced nasal bone fracture/medial orbital wall fracture/lamina propria fracture on the right side. 5. Tongue laceration. 6. Multiple bruises and contusions. 7. History of depression. 8. History of gout. 9. History of hypertension. PLAN MRI/MRA report reviewed EEG report reviewed Discussed with Dr. Finley he will follow as outpatient The patient's ultrasound of the carotids done last time on September 13. Also had cardiac catheterization done which did not show any significant lesion. Echocardiogram done on September 13 showed EF of 55-60%. Appreciate Neurology consult. Discussed with Dr. Barney. Patient okay to discharge. She advised no driving for at least 6 months and no drinking. Which is explained to the patient in detail. On IV hydration. Analgesics on a p.r.n. basis. Antiemetics on a p.r.n. basis. No withdrawal sign noted. Discussed with the patient in detail about DC planning including no driving for 6 months. Also counseled in detail about alcohol cessation. She understood very well. As per patient he will not drive and he will not drink. Advise patient to follow primary care DrVenice and neurology and Dr. Finley as outpatient. Patient understood very well. Also discussed with Dr. Azevedo his primary care doctor who will follow him this week. Patient will be discharged with Holter monitor. Dr. Azevedo will follow reports, as discussed with him. Plan to discharge him today. Discussed with RN in detail. Lelo Chatman MD Oct 01, 2016 10:33
[2016-10-01] MEDS ORDERED: CHLO25CA2 PO (10:35)
--- NOTE | 2016-10-01 10:38 | HHI.FF ---
Face to Face Verification Diagnosis: (1) Alcoholism (2) Hypokalemia (3) Right orbital fracture (4) Syncopal episodes Home Health Nursing Order: Medical education Signs/symptoms of disease process Nursing assessment with vital signs I have seen patient Alfa Morales on 10/01/16. My clinical findings support the need for the requested home health care services because: Ltd mobility - disease progression I certify that my clinical findings support that this patient is homebound because: Unable to use public transportation Lelo Chatman MD Oct 01, 2016 10:38
--- NOTE | 2016-10-01 10:42 | HHI.DS ---
Discharge Summary Admission Date Sep 29, 2016 at 22:11 Admitting Diagnosis right lower orbital fracture with entrapment, alcohol abuse, syncopa (1) Alcohol abuse Diagnosis: Principal (2) Hypokalemia Diagnosis: Principal (3) Syncopal episodes Diagnosis: Principal (4) Right orbital fracture Diagnosis: Principal Brief History Patient was admitted after a syncopal episode. Patient had facial fracture. Also had a colic intoxication. Patient was seen by neurologist. Had cardiac catheterization done with ultrasound and echocardiogram on last admission. Patient had EEG done this time. We did not show any seizure activity. MRI/MRA done which was nonsignificant. Past discussed with neurologist can be discharged. In follow as outpatient. 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 Discussed with primary care doctor who will follow him and will follow 24-hour Holter. Patient understood all very well. And he will follow those instructions. Will discharge him home today CBC/BMP: 09/30/16 1529 09/30/16 1529 Significant Findings Laboratory Tests Test 09/29/16 09/29/16 09/30/16 19:45 22:20 15:29 White Blood Count 11.7 TH/MM3 (4.0-11.0) Red Blood Count 4.08 MIL/MM3 3.95 MIL/MM3 (4.50-5.90) (4.50-5.90) Estimat Glomerular Filtration 65 ML/MIN (>89) Rate Random Glucose 111 MG/DL 134 MG/DL (74-106) (74-106) Calcium Level 8.1 MG/DL 8.4 MG/DL (8.5-10.1) (8.5-10.1) Aspartate Amino Transf 66 U/L (15-37) 42 U/L (15-37) (AST/SGOT) Creatine Kinase MB 3.7 NG/ML (0.5-3.6) Albumin 3.0 GM/DL 2.7 GM/DL (3.4-5.0) (3.4-5.0) Ethyl Alcohol Level 217 MG/DL (0-5) Urine Benzodiazepines Screen POS (NEG) Hemoglobin 12.9 GM/DL (13.0-17.0) Hematocrit 38.1 % (39.0-51.0) Monocytes (%) (Auto) 9.3 % (0.0-8.0) Pt Condition on Discharge: Good Discharge Disposition: Disch w/ Home Health Serv Discharge Instructions DIET: Follow Instructions for: Heart Healthy Diet Activities you can perform: Weight Bearing as Brittany Other Activity Instructions: No driving for at least 6 months. Or until seen by and christy with neurologist. No drinking alcohol Follow up Referrals: Neurology - 3 Weeks PCP Follow-up - 2-3 Days Surgical - 1 Week with [facility] ( OROMAXILLOFACIAL [facility] Changed Medications: Chlordiazepoxide (Chlordiazepoxide) 25 Mg Cap 20 MG PO Q6H DT prophylaxis Days 5 CAP (Changed from: 50 MG) Continued Medications: Acamprosate DR (Acamprosate DR) 333 Mg Tab 333 MG PO TID #90 Ref 0 TAB Allopurinol (Allopurinol) 300 Mg Tab 300 MG PO DAILY Gout #30 Ref 0 TAB Aspirin (Aspirin) 325 Mg Tab 325 MG PO DAILY cad #30 Ref 0 TAB Budesonide-Formoterol Inh (Symbicort Inh) 80-4.5 Mcg/Act Aero 2 PUFF INH Q12HR Asthma Management #1 Ref 0 INHALER Carvedilol (Coreg) 3.125 Mg Tab 3.125 MG PO BID cad #60 Ref 0 TAB Diphenhydramine (Benadryl Allergy) 25 Mg Tab 25 MG PO DAILY PRN ALLERGIES Ref 0 TAB Fluoxetine (Fluoxetine) 20 Mg Tab 20 MG PO DAILY #30 Ref 0 TAB Lelo Chatman MD Oct 01, 2016 10:42
[2016-10-01 12:00] VITALS: BP 124/64; PULSE 78; RESP 20; TEMP 97.7; O2SAT 100
--- NOTE | 2016-10-03 14:42 | HM ---
Date Performed: 10/01/2016 Time Performed: 12:10:00 HOOKUP DATE: 10/01/16 12:10:00 PM Sun ANALYSIS START TIME: 10/01/2016 12:15:00 PM ANALYSIS END TIME: 10/02/2016 12:02:00 PM PATIENT AGE: 65 PATIENT HEIGHT: 70 PATIENT WEIGHT: 243 DRUG LIST PATIENT DIAGNOSIS: SYNCOPE TEST NARRATIVE: The patient's average heart rate was 83 BPM. Heart rates greater than 120 B PM were noted < 1% of the time. No episodes of bradycardia were noted. No pauses exceeding 2.0 s econds were noted. 519 ventricular ectopics, which represented < 1% of the total beat count, were noted. The highest ventricular ectopic frequency occurred from 07:00 PM to 08:00 PM Sun. During th is time 74 VE(s) occurred. Ventricular ectopics were observed as 517 isolated beat(s) and as 1 coupl et(s). No runs were noted. 8 supraventricular ectopics, which represented < 1% of the total beat count, were noted. The highest supraventricular ectopic frequency occurred from 11:00 PM to 12:00 A M Mon. During this time 3 SVE(s) occurred. No episodes of ST depression (defined as -1.0 mm or m ore) were noted in channel 1. No episodes of ST depression (defined as -1.0 mm or more) were noted i n channel 2. In channel 3, a single episode of ST depression (defined as -1.0 mm or more) occurred a t 02:53:27 PM Sun with a maximum depression of -2.2 mm. No diary events were reported by the pat ient. TEST INTERPRETATION: The patient is in Sinus rhythm throughout the recording. The average heart rate is 83 bpm with a minimum heart rate of 61 bpm and a peak heart rate of 125 bpm. There were 517 ventricular premature beats. There were four isolated atrial premature beats. The review of the selected strips show a few episodes of SVT lasting only a few beats. No pauses were noted. There is no diary to review. CONCLUSIONS: Sinus rhythm throughout the recording with occasional ectopy as described above. Signed by : Eduardo Padilla
== END 2016-10-01 13:06 | disposition home or self-care (01) | DRG 982 ==
LOC: NEPC 19:18 → NEDA 22:11 → N06A 09-30
PROVIDERS: ADMIT Specialist; ATTEND Specialist
PROC: 0CQ7XZZ Repair Tongue, External Approach (ICD-10-PCS; principal; 2016-09-29)
DX: F10.229 Alcohol dependence with intoxication, unspecified (principal); S02.81XA Fracture of other specified skull and facial bones, right side, initial encounter for closed fracture; I10 Essential (primary) hypertension; S02.2XXA Fracture of nasal bones, initial encounter for closed fracture; S80.01XA Contusion of right knee, initial encounter; S01.512A Laceration without foreign body of oral cavity, initial encounter; S80.02XA Contusion of left knee, initial encounter; R55 Syncope and collapse; E87.6 Hypokalemia; W19.XXXA Unspecified fall, initial encounter; Z87.891 Personal history of nicotine dependence; M10.9 Gout, unspecified; J44.9 Chronic obstructive pulmonary disease, unspecified; Y90.7 Blood alcohol level of 200-239 mg/100 ml; Y92.009 Unspecified place in unspecified non-institutional (private) residence as the place of occurrence of the external cause; Z23 Encounter for immunization
CPT/HCPCS: 12011; 70450; 70486; 70544; 70551; 71010; 72125; 72170; 73560; 73564; 80048; 80053; 80076; 80307; 80320; 81001; 82550; 82552; 83735; 84484; 85025; 85610; 85730; 90471; 90714; 93005; 93225; 93226; 95819; 96374; 96375; J0690; J2405; J3411; J7030